=== PATIENT | male | born 2000 | race Two or more races ===

== ENCOUNTER 2022-01-07 19:27 | Emergency (ER) | payer OTHER ==
[~2022-01-07] VITALS: Ht 172.7 cm; Wt 81.6 kg
[2022-01-07 20:11] VITALS: BP 131/78
[2022-01-07] MEDS ORDERED: KETOROLAC TROMETH 60MG/2ML VIAL IM ONE (21:15)
== END 2022-01-07 20:17 | disposition left against medical advice (07) ==
LOC: ER 19:27 → EDBD 19:27 → ER 20:17
DX: M54.6 Pain in thoracic spine (principal); V49.59XA Passenger injured in collision with other motor vehicles in traffic accident, initial encounter; Y93.89 Activity, other specified; Y92.410 Unspecified street and highway as the place of occurrence of the external cause; Y99.8 Other external cause status